=== PATIENT | male | born 1985 | race Caucasian/White ===

== ENCOUNTER 2016-06-03 05:05 | Emergency (ER) | payer SELFPAY ==
[2016-06-03] MEDS ORDERED: IPRATROPIUM/ALBUTEROL 0.5-2.5 MG/3 ML AMPUL NEB ONE ×2 (05:11→05:14)
[2016-06-03] MEDS ORDERED: METHYLPREDNISOLONE INJ 125 MG/2 ML SDV IV ONE ×2 (05:14→05:23)
[2016-06-03] MEDS ORDERED: ALBUTEROL SULFATE 0.083% NEB 2.5 MG/3 ML AMPUL NEB ONE (05:23)
[2016-06-03] MEDS ORDERED: IPRATROPIUM BROMIDE 0.02% NEB 0.5 MG/2.5 ML AMPUL NEB PRN (05:23)
[2016-06-03] MEDS ORDERED: ALBUTEROL SULFATE 0.083% NEB 2.5 MG/3 ML AMPUL NEB SCH (05:29)
--- NOTE | 2016-06-03 05:29 | ER Document Report ---
ED Respiratory Problem - General Time seen by provider: 05:20 Mode of Arrival: Ambulatory Information source: Patient TRAVEL OUTSIDE OF THE [place] IN LAST 30 DAYS: No - HPI Patient complains to provider of: Asthma Onset: Other - see HPI note Context: Hx asthma, Smoker Similar symptoms previously: No Recently seen / treated by doctor: No - General Chief Complaint: Asthma Exacerbation Stated Complaint: DIFFICULTY BREATHING Notes: Patient is a 30 year old male presenting to the ED for difficulty breathing. Patient has a history of asthma since childhood. Patient states he had increased difficulty breathing starting last night. Patient states he ran out of his inhaler yesterday morning. Patient does not have a PCP and states his inhaler is approximately 2 years old. Patient is a smoker which is a possible cause for her asthma exacerbation. Patient states his difficulty breathing woke him up at 02:00 this morning. Patient went to get in the shower to provide some relief but states he could not catch his breath. Patient does report feeling better after receiving a nebulizer treatment in triage. (NICOLASA JACK) Past Medical History - General Information source: Patient - Social History Smoking Status: Current Every Day Smoker Family History: None Patient has suicidal ideation: No Patient has homicidal ideation: No Pulmonary Medical History: Reports: Hx Asthma Surgical Hx: Negative Review of Systems - Review of Systems Constitutional: No symptoms reported EENT: No symptoms reported Cardiovascular: No symptoms reported Respiratory: See HPI, Short of breath, Wheezing Gastrointestinal: No symptoms reported Genitourinary: No symptoms reported Male Genitourinary: No symptoms reported Musculoskeletal: No symptoms reported Skin: No symptoms reported Hematologic/Lymphatic: No symptoms reported Neurological/Psychological: No symptoms reported -: Yes All other systems reviewed and negative Physical Exam - Vital signs Interpretation: Normal - General General appearance: Appears well, Alert In distress: Mild - HEENT Head: Normocephalic, Atraumatic Eyes: Normal Pupils: PERRL Mucous membranes: Moist - Respiratory Respiratory status: No respiratory distress Chest status: Nontender Breath sounds: Wheezing - expiratory wheezes Chest palpation: Normal - Cardiovascular Rhythm: Regular Heart sounds: Normal auscultation Murmur: No - Abdominal Inspection: Normal Distension: No distension Bowel sounds: Normal Tenderness: Nontender Organomegaly: No organomegaly - Back Back: Normal, Nontender - Extremities General upper extremity: Normal inspection, Normal ROM, Normal strength General lower extremity: Normal inspection, Normal ROM, Normal strength - Neurological Neuro grossly intact: Yes Cognition: Normal Orientation: AAOx4 [place] Coma Scale Eye Opening: Spontaneous [place] Coma Scale Verbal: Oriented [place] Coma Scale Motor: Obeys Commands Wilfredo Coma Scale Total: 15 Speech: Normal - Psychological Associated symptoms: Normal affect, Normal mood - Skin Skin Temperature: Warm Skin Moisture: Dry Course - Re-evaluation Re-evalutation: 06/03/16 05:46 presents a month spell with difficulty breathing and wheezing. He says he's had a long-standing history of asthma particularly as child seems be getting worse past couple years but he also smokes. Says he ran out of his inhaler yesterday woke up in the middle the night with difficulty breathing and wheezing. Apparently when he came into the triage area he was struggling but improved significantly a breathing treatment prior to being brought to the back. He has no conversational dyspnea respiratory distress or intercostal retractions. Initial O2 sat was 92% on room air is afebrile. He's got expiratory wheezes when ahead and placed a saline lock Solu-Medrol and magnesium albuterol and Atrovent treatments. 06/03/16 05:59 [id number] Patient reassessed at bedside states he feels 100% better finishing up his breathing treatment. O2 sat 94-95% no respiratory distress. We will DC after breathing treatment on prednisone albuterol stop smoking follow primary care physician and I have given him and discussed reasons for ED return sooner 06/03/16 06:16 (DARWIN CORONADO) - Vital Signs Vital signs: Temp Pulse Resp BP Pulse Ox 98.0 F 72 24 H 147/95 H 92 06/03/16 05:14 06/03/16 05:14 06/03/16 05:14 06/03/16 05:14 06/03/16 05:14 Discharge - Discharge Clinical Impression: acute asthma exacerbation, tobacco abuse Condition: Stable Disposition: HOME, SELF-CARE Instructions: Asthma ([facility]) Additional Instructions: Asthma You have been diagnosed as having asthma. This is a condition where there is episodic tightness in the bronchial tubes. Allergies, infections, and polluted or cold air may be contributing factors. Emergency treatment of a severe asthma attack may include adrenaline shots , or bronchodilator aerosol. You may feel lightheaded, have a decreased exercise tolerance and a rapid pulse for an hour or two. Rest and get plenty of fluids. Home treatment of asthma requires bronchodilator drugs. These can be administered by injection, inhalation, or by mouth. Antibiotics and corticosteroids may be required for some patients. You should avoid chemical fumes, dusts, pollens, and exercising in very cold or dry air. If you smoke, stop!! If you develop a fever, increased wheezing, chest pain, or severe shortness of breath, you should contact the doctor immediately Prescriptions: Prednisone [Deltasone 20 mg Tablet] 3 tab PO DAILY 5 Days Forms: Smoking Cessation Education Referrals: [facility] [Provider Group] - Follow up tomorrow (Offered appointment to be seen in follow-up in 1-2 days return for increasing worsening or new symptoms stop smoking please) Scribe Attestation: 06/03/16 05:47 I personally performed the services described in the documentation reviewed the documentation recorded by my scribe in my presence and it accurately and completely records my words and actions 06/03/16 06:02 (DARWIN CORONADO) Scribe Documentation - Scribe Written by Scrbrandone:: Nicolasa Jack 06/03/16 06:00 acting as scribe for :: Eddie
[2016-06-03] MEDS: MAGNESIUM SULFATE/D5W 100 ML IV SCH ×2 (05:36→05:53)
[2016-06-03 06:31] VITALS: BP 132/74
[2016-06-03] MEDS ORDERED: ALBUTEROL SULFATE HFA (90 MCG/PUFF) 8 GM MDI (1 MDI/ER DISP) IH ONE (06:34)
== END 2016-06-03 06:40 | disposition home or self-care (01) ==
LOC: ER 05:05
DX: J45.901 Unspecified asthma with (acute) exacerbation (principal); R06.02 Shortness of breath; F17.200 Nicotine dependence, unspecified, uncomplicated
CPT/HCPCS: 96376; 94640 ×2; 99285; 96374; 96375; 71010; J2930; J3475; J3490; J7620